=== PATIENT | male | born 1965 | race Two or more races ===

== ENCOUNTER 2022-06-28 20:44 | Emergency (ER) | payer OTHER ==
[2022-06-28 21:13] VITALS: BP 126/78; PULSE 62; RESP 18; TEMP 98; BMI 31.4
== END 2022-06-28 21:20 | disposition home or self-care (01) ==
LOC: JER 20:44
DX: Z11.52 Encounter for screening for COVID-19 (principal)
CPT/HCPCS: 0241U-QW; 99283-25